=== PATIENT | male | born 1960 | race Two or more races ===

== ENCOUNTER 2019-01-24 12:29 | Emergency (ER) | payer OTHER ==
[2019-01-24 12:42] VITALS: BP 169/88; PULSE 71; TEMP 98.5; BMI 39.4
--- NOTE | 2019-01-24 14:56 | PDOC ---
History of Present Illness - General Chief Complaint: Injury Stated Complaint: FALL/RT SHOULDER INJURY Time Seen by Provider: 01/24/19 13:45 - History of Present Illness Initial Comments: 01/24/19 14:54 58-year-old male without comorbidities presents for right shoulder pain after a fall while slipping out of his truck. No head injury no post injury nausea vomiting visual changes vomiting. Past History - Past Medical History Allergies/Adverse Reactions: Allergies Allergy/AdvReac Type Severity Reaction Status Date / Time No Known Allergies Allergy Unverified 11/08/14 15:08 - Psycho Social/Smoking Cessation Hx Smoking History: Never smoked Hx Alcohol Use: No Drug/Substance Use Hx: No Review of Systems - Review of Systems Musculoskeletal: Yes: Joint Pain *Physical Exam - Vital Signs Last Vital Signs Temp Pulse Resp BP Pulse Ox 98.5 F 71 17 169/88 99 01/24/19 12:40 01/24/19 12:40 01/24/19 12:40 01/24/19 12:40 01/24/19 12:40 - Physical Exam 01/24/19 14:54 Right shoulder skin color and temperature are normal. There is minimal tenderness about the shoulder the patient refuses to move it. No gross sensorimotor deficits neurovascular intact upper extremity compartments are soft and nontender full range of motion of the elbow wrist and forearm ED Treatment Course - RADIOLOGY Radiology Studies Ordered: Category Date Time Status SHOULDER-RIGHT [RAD] Stat Radiology 01/24/19 14:25 Taken Medical Decision Making - Medical Decision Making 01/24/19 14:54 X-rays of the right shoulder show no evidence of fracture trauma or destructive process. Right shoulder contusion follow-up with Ortho Discharge - Discharge Information Problems reviewed: Yes Clinical Impression/Diagnosis: Shoulder contusion Condition: Stable Disposition: HOME - Admission No - Follow up/Referral Referrals: Deric Moraes MD [Primary Care Provider] - Grabiel Rhodes DO [Staff Physician] - - Patient Discharge Instructions Additional Instructions: Right shoulder contusion, Tylenol and Motrin as directed for pain. Follow-up with orthopedic surgery in 1 to 2 days without fail for further evaluation and treatment options and return to the emergency room should symptoms worsen. - Post Discharge Activity
[2019-01-24] MEDS ORDERED: IBUPROFEN 600 MG TABLET (FP) PO ONE ×2 (15:26→15:27)
== END 2019-01-24 15:36 | disposition home or self-care (01) ==
LOC: JERFT 12:29
CPT/HCPCS: 73030-TC-RT-FY; 99281-25